=== PATIENT | female | born 1970 | race Caucasian/White ===

== ENCOUNTER → 2023-04-06 16:57 | Outpatient (REF) | payer BC, SELFPAY | LOC: HWWDC 16:57 | PROVIDERS: ATTENDING PHYSICIAN Obstetrics & Gynecology Gynecology; FAMILY PHYSICIAN Internal Medicine | DX: Z12.31 Encounter for screening mammogram for malignant neoplasm of breast (principal) | CPT/HCPCS: 77063; 77067 ==

== ENCOUNTER → 2023-05-03 18:46 | Outpatient (REF) | payer BC, SELFPAY | LOC: MRI 18:46 | PROVIDERS: ATTENDING PHYSICIAN Nurse Practitioner | DX: H93.13 Tinnitus, bilateral (principal); R51.9 Headache, unspecified; U07.1 COVID-19 | CPT/HCPCS: 70551 ==

== ENCOUNTER 2023-10-08 02:11 | Emergency (ER) | payer BC, SELFPAY ==
[2023-10-08 02:13] VITALS: BP 143/77
[2023-10-08 03:35] VITALS: BMI 27.7
--- NOTE | 2023-10-08 04:17 | ED.GENMED ---
History of Present Illness
<EITAN Wolfe (Lenka) - Last Filed: 10/08/23 05:48>
General
Chief Complaint: Abdominal Pain
Source: patient
Exam Limitations: none
Time Seen by Provider: 10/08/23 04:15
Nursing documentation reviewed up to this point in time: agreed with
History of Present Illness
History of Present Illness:
Pt is a 53 yo female with PMHx of HTN and MVP who presents to the ED with sudden onset severe RUQ since yesterday afternoon around 1400, worsened this morning. Pt woke up from sleep this morning with RUQ abdominal pain, states the pain is constant
but has intermittent spasms that are 9/10 in severity. It radiates to her right shoulder. The pain is worse with inspiration and any movement. She denies N/V/D/C. No urinary symptoms. She took advil and gasX this morning with no relief. She tried to
eat, but the pain worsened.
No hx of abdominal surgeries, only a .
FHx of cholecystectomy d/t cholecystitis in brother.
She is postmenopausal
No hx of recent travel, not more sedentary than usual, no calf cramping or redness/swelling, no rashes.
She does not drink alcohol on a regular basis
She has never smoked tobacco
Past History
<EITAN Wolfe (Lenka) - Last Filed: 10/08/23 05:48>
Past History
ED Past Medical History: Asthma, HTN, Valvular disease (MVP) and Other (Black mold lung infection, Pneumonitis)
ED Past Surgical History: (X1) and Gynecological (IVF, ruptured ovarian cyst)
Social History
Tobacco: Non-smoker
Alcohol: None
Drug: None
Personal:
Living: with family
Phy Exam
<EITAN Wolfe (Lenka) - Last Filed: 10/08/23 05:48>
General Physical Exam
General Presentation: moderate distress (patient laying in bed with eyes closed, clutching RUQ)
Cardiovascular Exam
Cardiovascular Exam: regular rate/rhythm and normal peripheral pulses
Pulmonary Exam
Pulmonary Exam: lungs clear, no respiratory distress and no cough
Gastrointestinal Exam
Gastrointestinal Exam: normal bowel sounds, soft, non distended and tender (RUQ)
Neurological Exam
Neurological Exam: alert, oriented x3 and speech normal
Skin Exam
Skin Exam: normal color and warm/dry
Course
<EITAN Wolfe (Lenka) - Last Filed: 10/08/23 05:48>
Orders/Labs/Results
Orders:
Orders
10/08/23 03:55
EKG [Electrocardiogram (*1)] Urgent
Reason for Study: Abdominal Pain
EKG- Treatment ONCE
10/08/23 04:05
Complete Blood Count/With Diff Urgent
Comprehensive Metabolic Panel Urgent
Lipase Urgent
10/08/23 04:24
HYDROmorphone [Dilaudid] 0.5 mg IV NOW STA
Ondansetron Injectable [Zofran] 4 mg IV NOW STA
10/08/23 05:04
CT Abd/pelvis W Iv Cont Urgent
Comment:
Reason For Exam: RUQ, R flank pain since yesterday-severe
10/08/23 06:59
Urinalysis Reflex To Culture Urgent
Date Specimen was Collected: 10/08/23
Time Specimen was Collected: 06:55
Abnormal Lab Results
10/08/23
04:05
RBC 4.05 L 10^6/uL
(4.20-5.40)
Hct 35.7 L %
(37.0-47.0)
Absolute Neuts (auto) 6.9 H 10^3/uL
(1.4-6.5)
Absolute Monos (auto) 0.7 H 10^3/uL
(0.1-0.6)
Neutrophils % 77.3 H %
(42.2-75.2)
Lymphocytes % 13.8 L %
(20.5-51.1)
Glucose 103 H mg/dl
(70-99)
10/08/23 04:05
10/08/23 04:05
Vital Signs
Initial and Last Documented VS:
Initial Vital Signs
Temp Pulse Resp BP Pulse Ox
97.4 F 79 16 143/77 99
10/08/23 02:13 10/08/23 02:13 10/08/23 02:13 10/08/23 02:13 10/08/23 02:13
Last Documented Vital Signs
Temp Pulse Resp BP Pulse Ox
97.4 F 61 12 100/67 94
10/08/23 02:13 10/08/23 07:00 10/08/23 07:00 10/08/23 07:00 10/08/23 06:30
<Yady Vazquez DO - Last Filed: 10/08/23 07:30>
Orders/Labs/Results
Orders:
Orders
10/08/23 03:55
EKG [Electrocardiogram (*1)] Urgent
Reason for Study: Abdominal Pain
EKG- Treatment ONCE
10/08/23 04:05
Complete Blood Count/With Diff Urgent
Comprehensive Metabolic Panel Urgent
Lipase Urgent
10/08/23 04:24
HYDROmorphone [Dilaudid] 0.5 mg IV NOW STA
Ondansetron Injectable [Zofran] 4 mg IV NOW STA
10/08/23 05:04
CT Abd/pelvis W Iv Cont Urgent
Comment:
Reason For Exam: RUQ, R flank pain since yesterday-severe
10/08/23 06:59
Urinalysis Reflex To Culture Urgent
Date Specimen was Collected: 10/08/23
Time Specimen was Collected: 06:55
Abnormal Lab Results
10/08/23
04:05
RBC 4.05 L 10^6/uL
(4.20-5.40)
Hct 35.7 L %
(37.0-47.0)
Absolute Neuts (auto) 6.9 H 10^3/uL
(1.4-6.5)
Absolute Monos (auto) 0.7 H 10^3/uL
(0.1-0.6)
Neutrophils % 77.3 H %
(42.2-75.2)
Lymphocytes % 13.8 L %
(20.5-51.1)
Glucose 103 H mg/dl
(70-99)
10/08/23 04:05
10/08/23 04:05
Vital Signs
Initial and Last Documented VS:
Initial Vital Signs
Temp Pulse Resp BP Pulse Ox
97.4 F 79 16 143/77 99
10/08/23 02:13 10/08/23 02:13 10/08/23 02:13 10/08/23 02:13 10/08/23 02:13
Last Documented Vital Signs
Temp Pulse Resp BP Pulse Ox
97.4 F 61 12 100/67 94
10/08/23 02:13 10/08/23 07:00 10/08/23 07:00 10/08/23 07:00 10/08/23 06:30
<EITAN Wolfe (Lenka) - Last Filed: 10/08/23 05:48>
MDM/Problems Addressed
Differential Diagnosis Includes:
DDX: cholecystitis vs pyelonephritis vs gastroenteritis vs pancreatitis vs nephrolithiasis
Pt in visible discomfort clutching at RUQ, pain with light and deep palpation, referred pain to RUQ with palpation of LUQ. Sudden onset in nature, pleuritic, worse with movement and eating food. No relief with Advil or GasX. Will obtain CTAP, CBC,
CMP, lipase to assess for intraabdominal pathology.
<EITAN Wolfe (Lenka) - Last Filed: 10/08/23 05:48>
*Critical Care Note
Total Time (30-74mins, 75-104mins- exclusive of procedures): Not Applicable
<Yady Vazquez DO - Last Filed: 10/08/23 07:30>
*Radiology
Radiology exam reviewed: radiology read reviewed
*Pulse Oximetry
Patient hypoxic: no
*EKG
Interpreted by ED Provider?: Yes
Interpretation: normal
Comparison EKG: no changes (Unchanged from previous September 2019)
Rate: normal
Rhythm: sinus
[place]and: normal axis
Interval: normal interval
QRS Pattern: normal QRS
Ischemia: no ischemia
*[place] Interpretation
Rate: normal
Interpretation: normal
Rhythm: sinus
ED Attending Note
<EITAN Wolfe (Lenka) - Last Filed: 10/08/23 05:48>
-
Portions of this chart may have been created with voice recognition software.� Occasional wrong word or��sound alike� substitutions may have occurred due to the inherent limitations of voice recognition software.
<Yady Vazquez DO - Last Filed: 10/08/23 07:30>
ED Attending Note
Patient seen and examined by attending physician: Yes
I performed the substantive portion of visit, reviewed & personally made and approve the management plan that is documented in note by myself or MATT.: Yes
ED Attending Note:
This is a 53-year-old woman with history of hypertension, mitral valve prolapse who presents to the ED with complaints of persistent moderate to severe right upper quadrant, right lateral to right posterior flank pain that began yesterday afternoon
around 2 PM. Pain has been constant with occasional radiation to her right shoulder. Pain is worse with deep breath, worse with rotation of her trunk. She denies nausea nor vomiting, no diarrhea or constipation, no dysuria and urgency and or
hematuria. She has not had a cough nor shortness of breath, no fever nor chills.
She notes similar episode of right upper quadrant/right flank pain December 2022. She states pain lasted several days then eventually resolved without definitive cause.
She denies fall nor injury.
No recent travel. No leg pain or swelling. No history of thromboembolism nor risk factors for such.
She is menopausal.
GENERAL: 53-year-old woman appears her stated age, awake and alert, pleasant, appears in mild distress related to pain. Easily communicative. Vital signs within normal limits.
EYE: anicteric
NECK: Supple, nontender, no meningismus, no significant adenopathy.
ENT: oral mucosa is moist. No rhinorrhea.
CARDIAC: Regular rate and rhythm. no murmur.
LUNGS: Clear breath sounds bilaterally, no acute respiratory distress, no wheezes/rales/rhonchi
ABDOMEN: Soft, nondistended, moderate tenderness right upper lateral quadrant, right lateral flank as well as moderate right CVA tenderness. normoactive BS.
NEUROLOGICAL: Alert and oriented x3, no focal neuro deficits. Gait is steady.
SKIN: Warm and dry, normal color, skin intact. No rash.
MUSCULOSKELETAL: No C/C/E. peripheral pulses are full and equal b/l. No palpable tenderness.
PSYCH: Normal and appropriate interaction.
Concern for acute biliary colic/cholecystitis, renal colic/ureteric stone, pyelonephritis, pleurisy, pneumonia, right-sided diverticulitis, less likely retrocecal appendix.
Labs are pending.
Will medicate for pain.
Will consider imaging depending on results.
10/08/2023 0644 AM
Patient resting comfortably with marked improvement in pain after an IV dose of Dilaudid.
Labs are unremarkable.
CT abdomen pelvis is unremarkable save for some dependent atelectasis. She continues to deny cough, no further pain with deep inspiration.
Abdomen is now soft without appreciable tenderness but she continues with moderate tenderness to palpation right paravertebral musculature distal thoracic to proximal lumbar region.
I suspect thoracolumbar muscular pain as cause for her discomfort but will check urinalysis, assess for potential infection/pyelonephritis but reassuring that patient has not had a fever, no UTI symptoms, white blood cell count is normal.
Discharge Plan
Departure
Patient Disposition: Home (Routine Discharge)
Date of Disposition: 10/08/23
Time of Disposition: 07:29
Patient with high blood pressure during this ER visit?: No
Condition: Good
Discharge Problem:
right thoracolumbar muscle strain
Instructions: Back Muscle Strain (DC)
Prescriptions:
New
cyclobenzaprine 10 mg tablet
10 mg PO BIDPRN PRN (Reason: muscle spasm) Qty: 20 0RF
diclofenac sodium 75 mg tablet,delayed release (DR/EC)
75 mg PO BID PRN (Reason: pain) Qty: 30 0RF
No Action
sertraline 100 mg Tablet
100 mg PO DAILY
bupropion HCl [Wellbutrin SR] 200 mg Tablet Sustained-Release 12 Hr
200 mg PO DAILY
Referrals:
Claudio Farfan MD [Family Provider] - Call in 1-3 days for appt
Interventions
Interventions:
*Risk Screen - Suicide Last Done: 10/08/23 02:13
*Neglect/Abuse Screening Last Done: 10/08/23 02:13
ED- Fall Risk Assessment Last Done: 10/08/23 03:37
*ED COVID-19 Vaccine History Last Done: 10/08/23 03:37
TZ-[id number]-[id number] Assessment Last Done: 10/08/23 03:37
Discharge Date and Time
Print Language: THAI
[2023-10-08 04:30] LABS: % Basophils 0.4 % (0-2); % Eosinophils 0.8 % (0-6); % Immature Granulocytes 0.3 % (0-0.5); % Lymphocytes 13.8 % (20.5-51.1); % Monocytes 7.4 % (1.7-9.3); % Neutrophils 77.3 % (42.2-75.2); Absolute Eosinophils 0.1 10^3/uL (0-0.7); Absolute Lymphocytes 1.2 10^3/uL (1.2-3.4); Absolute Monocytes 0.7 10^3/uL (0.1-0.6); Absolute Neutrophils 6.9 10^3/uL (1.4-6.5); Hematocrit 35.7 % (37.0-47.0); Hemoglobin 12.5 g/dL (12.0-16.0); Mean Corpuscular Hgb 30.9 pg (27.0-31.0); Mean Corpuscular Volume 88.1 fL (81.0-99.0); Mean Platelet Volume 9.1 fL (7.4-10.4); Nucleated Red Blood Cells % 0 %; Platelet Count 237 10^3/uL (130-400); Red Blood Cell Count 4.05 10^6/uL (4.20-5.40); Red Cell Dist. Width 12.2 % (11.5-14.5); White Blood Cell Count 8.9 10^3/uL (4.8-10.8)
[2023-10-08 04:33] VITALS: BP 117/85
[2023-10-08] MEDS: DILAUDID 0.5 MG IV (04:36)
[2023-10-08] MEDS: ZOFRAN 4 MG IV (04:36)
[2023-10-08 04:42] LABS: ALT (SGPT) 16 U/L (0-35); AST (SGOT) 24 U/L (14-36); Albumin 4.6 g/dl (3.5-5.0); Alkaline Phosphatase 107 U/L (38-126); Blood Urea Nitrogen 12 mg/dl (7-17); Calcium 9.7 mg/dl (8.4-10.2); Carbon Dioxide 24 mmol/L (22-30); Chloride 102 mmol/L (98-107); Estimated Creatinine Clearance 88 ml/min; Glucose 103 mg/dl (70-99); Lipase 49 U/L (23-300); Potassium 4.7 mmol/L (3.5-5.1); Sodium 137 mmol/L (135-145); Total Bilirubin 0.3 mg/dl (0.2-1.3); Total Protein 6.7 g/dl (6.3-8.2); eGFR > 60.00
[2023-10-08 05:00] VITALS: BP 99/68
[2023-10-08 05:10] VITALS: BP 99/64
[2023-10-08 06:04] VITALS: BP 97/65
[2023-10-08 07:00] VITALS: BP 100/67
[2023-10-08 07:07] LABS: Urine Albumin Negative (Neg - Trace); Urine Bilirubin Negative (Negative); Urine Character Clear (Clear); Urine Color Straw; Urine Glucose Negative (Negative); Urine Ketone Negative (Negative); Urine Leukocyte Negative (Negative); Urine Nitrite Negative (Negative); Urine Occult Blood Negative (Negative); Urine Specific Gravity 1.015 (<1.030); Urine Urobilinogen Negative (Neg - 1+)
== END 2023-10-08 08:02 | disposition home or self-care (01) ==
LOC: EMR 02:11
PROVIDERS: EMERGENCY PHYSICIAN Emergency Medicine; FAMILY PHYSICIAN Internal Medicine
DX: S29.011A Strain of muscle and tendon of front wall of thorax, initial encounter (principal); R10.11 Right upper quadrant pain; M25.511 Pain in right shoulder; X58.XXXA Exposure to other specified factors, initial encounter; I10 Essential (primary) hypertension; J45.909 Unspecified asthma, uncomplicated; I34.1 Nonrheumatic mitral (valve) prolapse
CPT/HCPCS: 99285; 96375; 96374; 74177; 80053; 81003; 83690; 85025; 93005; Q9967

== ENCOUNTER → 2024-05-03 15:07 | Outpatient (REF) | payer BC, MEDICAID, SELFPAY | LOC: WDC 15:07 | PROVIDERS: ATTENDING PHYSICIAN Obstetrics & Gynecology Gynecology; FAMILY PHYSICIAN Internal Medicine | DX: Z12.31 Encounter for screening mammogram for malignant neoplasm of breast (principal) | CPT/HCPCS: 77063; 77067 ==

== ENCOUNTER → 2024-05-09 15:02 | Outpatient (REF) | payer BC, MEDICAID, SELFPAY | LOC: HWRAD 15:02 | PROVIDERS: ATTENDING PHYSICIAN Nurse Practitioner; FAMILY PHYSICIAN Internal Medicine; REFERRING PHYSICIAN Obstetrics & Gynecology Gynecology | DX: R10.31 Right lower quadrant pain (principal) | CPT/HCPCS: 76700 ==

== ENCOUNTER → 2024-07-06 13:54 | Outpatient (REF) | payer BC, MEDICAID, SELFPAY | LOC: RAD 13:54 | PROVIDERS: ATTENDING PHYSICIAN Hospitalist | DX: R05.3 Chronic cough (principal) | CPT/HCPCS: 71046 ==

== ENCOUNTER 2024-10-31 12:27 | Emergency (ER) | payer SELFPAY ==
[2024-10-31 12:34] VITALS: BP 130/83
--- NOTE | 2024-10-31 13:47 | ED.GENMED ---
History of Present Illness
General
Chief Complaint: Head Injury
Source: patient
Exam Limitations: none
Time Seen by Provider: 10/31/24 13:25
Nursing documentation reviewed up to this point in time: agreed with
History of Present Illness
History of Present Illness:
54-year-old female with a past medical history of hypertension presents to the ER for evaluation of head trauma. 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 She says that she did
not pass out but started to have some headache, ringing in her years. She went to the nurses office and was given an ice pack but shortly after she said she vomited twice and was sent to the ER for assessment. She denies any other injuries or
complaints.
Past History
Past History
ED Past Medical History: Asthma, HTN, Valvular disease (MVP) and Other (Black mold lung infection, Pneumonitis)
ED Past Surgical History: (X1) and Gynecological (IVF, ruptured ovarian cyst)
Social History
Tobacco: Non-smoker
Alcohol: None
Drug: None
Personal:
Living: with family
Review of Systems
Review of Systems
All Other Systems: ROS reviewed and negative except as documented in HPI and ROS
EENT: Reports other (Tinnitus)
Cardiac: Denies chest pain
ABD/GI: Reports nausea and vomiting; Denies abdominal pain
: Denies flank pain
Musculoskeletal: Denies neck pain or back pain
Neurological: Reports headache
Phy Exam
Physical Exam
Physical Exam:
General: Awake, alert, oriented x3; no acute distress
Head: Normocephalic, atraumatic�no palpable hematoma or laceration/abrasions to the scalp
Eyes: Conjunctiva normal, EOMI, pupils equal round and reactive to light bilaterally
Throat: Airway intact, handling secretions
Neck: Trachea midline, supple without meningismus, no midline cervical tenderness, full range of motion without pain
Lungs: Breathing comfortably with no distress
Heart: Regular rate
Abd: Soft, non distended, nontender
Neuro: Cranial nerves intact, speech fluid without dysarthria or aphasia, no limb ataxia, motor and sensory intact in all extremities
Extremities: No edema in extremities, equal pulses in all extremities
Scores
Heart Failure Risk
Heart Failure Risk Score: Not Applicable
Heart Score for Chest Pain Patients
STEMI patient?: Not applicable
Withdrawal Assessment of Alcohol
Withdrawal Assessment Completed?: Not applicable
Course
Orders/Labs/Results
Orders:
Orders
10/31/24 13:25
CT Head W/o Iv Contrast Urgent
Comment:
Reason For Exam: headache, vomiting after head strike
10/31/24 13:46
Ibuprofen [Motrin] 400 mg PO NOW STA
Ondansetron Orally Disint [Zofran Odt (Orally Disintegrating)] 4 mg PO NOW STA
Vital Signs
Initial and Last Documented VS:
Initial Vital Signs
Temp Pulse Resp BP Pulse Ox
37.1 C 67 18 130/83 100
10/31/24 12:34 10/31/24 12:34 10/31/24 12:34 10/31/24 12:34 10/31/24 12:34
Last Documented Vital Signs
Temp Pulse Resp BP Pulse Ox
37.1 C 67 18 130/83 100
10/31/24 12:34 10/31/24 12:34 10/31/24 12:34 10/31/24 12:34 10/31/24 13:50
MDM/Problems Addressed
Differential Diagnosis Includes:
Concussion, brain bleed
MDM/Problems Addressed:
54-year-old female presents for evaluation of headache, tinnitus, nausea with 2 episodes of vomiting after being hit in the head with a hard ball today. Vitals and exam as above. Suspect likely concussion but given 2 episodes of vomiting reported
will check CT head (using [place] head CT rule as guideline). Will treat symptomatically. Reassess after the above.
CT head shows no acute abnormalities. Suspect concussion. Stable for discharge will prescribe Zofran as needed for nausea advised regarding brain rest, Tylenol/Motrin for headache. Patient comfortable with this plan. All questions answered.
*Radiology
Radiology exam reviewed: radiology read reviewed
*Pulse Oximetry
SaO2: 100
Oxygen Mode of Delivery: Room air
Patient hypoxic: no (100%)
*Critical Care Note
Total Time (30-74mins, 75-104mins- exclusive of procedures): Not Applicable
Data Reviewed
Source: patient and records
ED Attending Note
-
Portions of this chart may have been created with voice recognition software.� Occasional wrong word or��sound alike� substitutions may have occurred due to the inherent limitations of voice recognition software.
Discharge Plan
Departure
Patient Disposition: Home (Routine Discharge)
Date of Disposition: 10/31/24
Time of Disposition: 16:34
Patient with high blood pressure during this ER visit?: No
Discharge Problem:
Concussion
Instructions: Concussion, Adult (DC)
Prescriptions:
New
ondansetron 4 mg tablet,disintegrating
4 mg PO TIDPRN PRN (Reason: nausea/vomiting) Qty: 10 0RF
No Action
sertraline 100 mg Tablet
100 mg PO DAILY
bupropion HCl [Wellbutrin SR] 200 mg Tablet Sustained-Release 12 Hr
200 mg PO DAILY
cyclobenzaprine 10 mg tablet
10 mg PO BIDPRN PRN (Reason: muscle spasm) Qty: 20 0RF
diclofenac sodium 75 mg tablet,delayed release (DR/EC)
75 mg PO BID PRN (Reason: pain) Qty: 30 0RF
Referrals:
Claudio Farfan MD [Family Provider, Internal Medicine] - Follow up in 1 week
Activity Restrictions/Additional Instructions:
Thank you for visiting the Emergency Department at [facility].
1. Please schedule a follow up appointment as directed. Call first thing tomorrow morning to make an appointment.
2. If indicated, please take your medications as instructed and indicated on discharge paperwork.
3. If any of your symptoms do not improve, or persist, or become more severe within 6-12 hours, please return to the emergency department for further care.
4. Please return to the emergency department if you develop a headache, neck pain/stiffness, fever greater than 100.4F, chest pain, shortness of breath, persistent nausea, vomiting, slurred speech, difficulty walking, numbness/tingling, weakness,
signs of infection or any other symptoms that are worrisome to you.
Please call [phone] if you have any questions.
Interventions
Interventions:
*Risk Screen - Suicide Last Done: 10/31/24 12:34
*General Assessment Last Done: 10/31/24 12:34
*Neglect/Abuse Screening Last Done: 10/31/24 12:34
*ED- Fall Risk Assessment Last Done: 10/31/24 12:34
*ED COVID-19 Vaccine History Last Done: 10/31/24 12:34
ED- Neurological Assessment Last Done: 10/31/24 13:58
ED-Skin Assessment Last Done: 10/31/24 13:58
Discharge Date and Time
Print Language: WOLOF
[2024-10-31] MEDS: ZOFRAN ODT (ORALLY DISINTEGRATING) 4 MG PO (13:58)
[2024-10-31] MEDS: MOTRIN 400 MG PO (13:58)
== END 2024-10-31 20:00 | disposition home or self-care (01) ==
LOC: EMR 12:27
PROVIDERS: EMERGENCY PHYSICIAN Emergency Medicine; FAMILY PHYSICIAN Internal Medicine
DX: S06.0X0A Concussion without loss of consciousness, initial encounter (principal); W21.09XA Struck by other hit or thrown ball, initial encounter; Y92.219 Unspecified school as the place of occurrence of the external cause; Y99.0 Civilian activity done for income or pay; I10 Essential (primary) hypertension; I34.1 Nonrheumatic mitral (valve) prolapse; J45.909 Unspecified asthma, uncomplicated
CPT/HCPCS: 99284; 70450